=== PATIENT | female | born 1995 | race Asian ===

== ENCOUNTER 2024-08-19 13:40 | Emergency (ER) | payer SELFPAY ==
[2024-08-19] VITALS (25 sets, daily range): BP systolic 96–121; BP diastolic 54–78; PULSE 68–105; RESP 12–31; TEMP 36.8; O2SAT 97–100; BMI 16.6
[2024-08-19 14:08] LABS: Add Manual Diff / Slide Review NO; Basophils Absolute Auto 100 /uL (0-100); Basophils Percent Auto 0.6 % (0-2); Eosinophils Absolute Auto 0 /uL (0-450); Eosinophils Percent Auto 0.1 % (2-4); Hematocrit 33.3 % (36-46); Hemoglobin 10.7 g/dL (12.0-16.0); Lymphocytes Absolute Auto 1100 /uL (1100-4500); Lymphocytes Percent Auto 10.6 % (25-40); Mean Corpuscular Hemoglobin 24.6 PG (26-34); Mean Corpuscular Volume 76.8 fL (80-100); Monocytes Absolute Auto 600 /uL (0-900); Monocytes Percent Auto 5.4 % (3-14); Neutrophils Absolute Auto 8900 /uL (1500-7000); Neutrophils Percent Auto 83.3 % (50-75); Platelet Count 460 X10^3/uL (150-400); Red Blood Cell Count 4.33 X10^6/uL (4.0-5.2); Red Cell Distribution Width 14.1 % (11.6-14.8); White Blood Cell Count 10.7 X10^3/uL (4.5-11.0)
[2024-08-19 14:13] LABS: Alanine Aminotransferase 13 IU/L (<35); Albumin 4.5 g/dL (3.5-5.0); Albumin Globulin Ratio 1.2 (1.0-2.8); Alkaline Phosphatase 86 U/L (38-126); Aspartate Aminotransferase 33 IU/L (14-36); BUN Creatinine Ratio 15.4 (6-22); Bilirubin Total 0.6 mg/dL (0.2-1.3); Blood Urea Nitrogen 16 mg/dL (7-17); Calcium 10.3 mg/dL (8.4-10.2); Carbon Dioxide 27 mmol/L (22-32); Chloride 95 mmol/L (98-107); Estimated Glomerular Filt Rate > 60 mL/min (>60); Globulin 3.9 g/dL (1.7-4.1); Glucose 85 mg/dL (70-100); HEMOLYSIS < 15 (0-50); Lipase 91 U/L (23-300); Potassium 4.2 mmol/L (3.4-5.1); Sodium 135 mmol/L (137-145); Total Protein 8.4 g/dL (6.3-8.2)
--- NOTE | 2024-08-19 14:57 | EKG_ITS ---
[place] [id number] [place] [id number] Test Date: 2024-08-19 Pat Name: Vijay Kemp Department: [facility] Room: Gender: Female Cna Gna: BRANDY : 1995 Requested By: Order Number: [id number] Reading MD: Juan Dickey MD Measurements Intervals [place] Rate: 95 P: 4 IN: 92 QRS: 82 QRSD: 82 T: -54 QT: 344 QTc: 432 Interpretive Statements Sinus rhythm with short IN T wave abnormality, consider inferior ischemia NO PRIOR TRACING Electronically Signed On 08-20-2024 6:49:16 PST by Juan Dickey MD
[2024-08-19] MEDS: ONDANSETRON 4 MG/2 ML INJ IV (14:59)
--- NOTE | 2024-08-19 15:11 | PC.NURSE ---
This RN checks on patient. She denies chest pain and denies SOB. Registered Nurse Surgical Services used. Provider Marc made aware.
--- NOTE | 2024-08-19 15:21 | ED_ITS ---
HPI - Abdominal Pain <Cleo Tran DO - Last Filed: 08/22/24 08:18> General Chief Complaint: Abdominal Pain Stated Complaint: vomiting, nausea, r abd pain, sent by [facility] Time Seen by Provider: 08/19/24 15:20 Source: patient and family (mother in law at bedside) Mode of arrival: Wheelchair Limitations: language barrier (used warehouse representative service) History of Present Illness HPI narrative: 28-year-old female with history of complete hysterectomy presents with complaint of nausea and vomiting for the past 5 days. Patient and feel nauseated before she would eat have a lot of saliva but after eating within throw up she has also been having abdominal pain which describes in the right lower quadrant. Denies any flank pain. Denies any fevers chills or sweats. No chest pain no shortness of breath. Was having bowel movements accept for the last day, she had a bowel movement yesterday states it was very constipated. No bright red blood no melanotic stools. States it her in her belly when she had bowel movement but not at the rectal area. Denies any dysuria urgency or frequency. No vaginal bleeding or discharge. She was not currently on any prescription medication. Did try some Tylenol for pain which was helpful. Has a history of 3 years ago had a hysterectomy and bilateral oophorectomy in March of 2024 who reports that she had a large cyst that was infected and resulted in her surgery. She was on estrogen postsurgically but [place] the [place] has not continued it. Postsurgically she took meloxicam and vitamins. Patient states no allergies to medications. No tobacco, alcohol or recreational drugs. She was currently living in [place]. She was accompanied by her [id number]. Patient states currently 4 or 5/10 when abdomen is palpated was 7/10 earlier today she states it is fairly well controlled when she was resting without any movement. Related Data Home Medications Medication Instructions Recorded Confirmed No Known Home Medications 08/19/24 08/19/24 Allergies Allergy/AdvReac Type Severity Reaction Status Date / Time No Known Drug Allergies Allergy Unverified 08/19/24 12:58 Review of Systems <DO Jesse Alejandro Last Filed: 08/22/24 08:18> Review of Systems ROS Unobtainable: All systems reviewed & are unremarkable except as noted in HPI and below Patient History <Cleo Tran DO - Last Filed: 08/22/24 08:18> Social History Smoking Status: Never smoker Smoking Status: Never smoker Substance Use Type: does not use Exam <Cleo Tran DO - Last Filed: 08/22/24 08:18> Narrative Exam Narrative: GENERAL: Alert and oriented x three, then female in mild distress. HEENT: Head normocephalic, atraumatic, EOMI, pupils reactive, face symmetric, moist mucous membranes NECK: Supple, full range of motion CARDIOVASCULAR: Regular rate and rhythm without murmurs, rubs or gallops. RESPIRATORY: Breath sounds equal bilaterally, no wheezes rales or rhonchi. ABDOMEN: Soft, mild left lower quadrant tenderness patient is definitely tender in the right lower quadrant. Normoactive bowel sounds all 4 quadrants. No guarding or rebound, rigidity, no mass, patient has horizontal incision just above the suprapubic region clean dry and intact appears well healed nontender over that region. : No CVA tenderness bilaterally. EXTREMITIES: Normal range of motion, no clubbing or edema. Neurovascularly intact NEUROLOGICAL: Cranial nerves II through XII grossly intact. Moving all extremities SKIN: Warm, dry, no petechiae, no rashes or lesions. Initial Vital Signs Initial Vital Signs: Vital Signs Pulse Rate 98 H 08/19/24 13:50 Blood Pressure 121/74 08/19/24 13:50 Pulse Oximetry 100 08/19/24 13:50 <Cleo Jimenez MD - Last Filed: 08/20/24 05:34> Initial Vital Signs Initial Vital Signs: Vital Signs Pulse Rate 98 H 08/19/24 13:50 Blood Pressure 121/74 08/19/24 13:50 Pulse Oximetry 100 08/19/24 13:50 Course <Cleo Tran DO - Last Filed: 08/22/24 08:18> Orders Ordered: Discontinued Medications Diphenhydramine HCl (Diphenhydramine 50 Mg/Ml Vial) 25 mg IV NOW ONE Stop: 08/19/24 16:44 Last Admin: 08/19/24 17:08 Dose: 25 mg Documented By: SB Sodium Chloride (Normal Saline 0.9%) 1,000 mls @ 1,000 mls/hr IV BOLUS ONE Stop: 08/19/24 17:42 Last Infusion: 08/19/24 18:02 Dose: Infused Documented By: Admin: 08/19/24 17:07 Dose: 1,000 mls/hr Documented By: SALVADOR Ketorolac Tromethamine (Ketorolac 30 Mg/Ml Vial) 15 mg IV NOW ONE Stop: 08/19/24 16:43 Last Admin: 08/19/24 17:09 Dose: 15 mg Documented By: SALVADOR Ondansetron HCl (Ondansetron 4 Mg/2 Ml Inj) 4 mg IV NOW PRN PRN Reason: Nausea And Vomiting Last Admin: 08/20/24 05:15 Dose: 4 mg Documented By: Admin: 08/19/24 14:59 Dose: 4 mg Documented By: SALVADOR Ondansetron HCl (Ondansetron 4 Mg Odt) 4 mg PO NOW PRN PRN Reason: Nausea And Vomiting Vital Signs Vital signs: Vital Signs - 8 hr 08/19/24 22:00 08/19/24 22:00 08/19/24 22:30 Pulse Rate 76 68 Respiratory Rate 20 19 Blood Pressure 102/59 L Pulse Oximetry 99 99 Oxygen Delivery Method Room Air 08/19/24 22:30 08/19/24 23:00 08/19/24 23:00 Pulse Rate 79 Respiratory Rate Blood Pressure 108/60 96/54 L Pulse Oximetry 98 Oxygen Delivery Method 08/19/24 23:30 08/19/24 23:30 08/20/24 00:00 Pulse Rate 76 Respiratory Rate Blood Pressure 97/57 L 99/60 Pulse Oximetry 98 Oxygen Delivery Method Room Air 08/20/24 00:00 08/20/24 00:30 08/20/24 00:59 Pulse Rate 81 83 81 Respiratory Rate Blood Pressure Pulse Oximetry 98 100 99 Oxygen Delivery Method 08/20/24 00:59 08/20/24 01:00 08/20/24 01:00 Pulse Rate 81 Respiratory Rate 18 Blood Pressure 93/75 106/58 L Pulse Oximetry 99 Oxygen Delivery Method Room Air <Cleo Jimenez MD - Last Filed: 08/20/24 05:34> Orders Ordered: Discontinued Medications Diphenhydramine HCl (Diphenhydramine 50 Mg/Ml Vial) 25 mg IV NOW ONE Stop: 08/19/24 16:44 Last Admin: 08/19/24 17:08 Dose: 25 mg Documented By: SALVADOR Sodium Chloride (Normal Saline 0.9%) 1,000 mls @ 1,000 mls/hr IV BOLUS ONE Stop: 08/19/24 17:42 Last Infusion: 08/19/24 18:02 Dose: Infused Documented By: Admin: 08/19/24 17:07 Dose: 1,000 mls/hr Documented By: SALVADOR Ketorolac Tromethamine (Ketorolac 30 Mg/Ml Vial) 15 mg IV NOW ONE Stop: 08/19/24 16:43 Last Admin: 08/19/24 17:09 Dose: 15 mg Documented By: SALVADOR Ondansetron HCl (Ondansetron 4 Mg/2 Ml Inj) 4 mg IV NOW PRN PRN Reason: Nausea And Vomiting Last Admin: 08/20/24 05:15 Dose: 4 mg Documented By: Admin: 08/19/24 14:59 Dose: 4 mg Documented By: SALVADOR Ondansetron HCl (Ondansetron 4 Mg Odt) 4 mg PO NOW PRN PRN Reason: Nausea And Vomiting Vital Signs Vital signs: Vital Signs - 8 hr 08/19/24 22:00 08/19/24 22:00 08/19/24 22:30 Pulse Rate 76 68 Respiratory Rate 20 19 Blood Pressure 102/59 L Pulse Oximetry 99 99 Oxygen Delivery Method Room Air 08/19/24 22:30 08/19/24 23:00 08/19/24 23:00 Pulse Rate 79 Respiratory Rate Blood Pressure 108/60 96/54 L Pulse Oximetry 98 Oxygen Delivery Method 08/19/24 23:30 08/19/24 23:30 08/20/24 00:00 Pulse Rate 76 Respiratory Rate Blood Pressure 97/57 L 99/60 Pulse Oximetry 98 Oxygen Delivery Method Room Air 08/20/24 00:00 08/20/24 00:30 08/20/24 00:59 Pulse Rate 81 83 81 Respiratory Rate Blood Pressure Pulse Oximetry 98 100 99 Oxygen Delivery Method 08/20/24 00:59 08/20/24 01:00 08/20/24 01:00 Pulse Rate 81 Respiratory Rate 18 Blood Pressure 93/75 106/58 L Pulse Oximetry 99 Oxygen Delivery Method Room Air MDM - Abdominal Pain <Cleo Tran, DO - Last Filed: 08/22/24 08:18> Lab Data 08/19/24 13:50 08/19/24 13:50 Labs: Lab Results 08/19/24 08/19/24 Range/Units 13:50 15:00 WBC 10.7 (4.5-11.0) X10^3/uL RBC 4.33 (4.0-5.2) X10^6/uL Hgb 10.7 L (12.0-16.0) g/dL Hct 33.3 L (36-46) % MCV 76.8 L (80-100) fL MCH 24.6 L (26-34) PG MCHC 32.0 (30-36) % RDW 14.1 (11.6-14.8) % Plt Count 460 H (150-400) X10^3/uL Neut % (Auto) 83.3 H (50-75) % Lymph % (Auto) 10.6 L (25-40) % [place] % (Auto) 5.4 (3-14) % Eos % (Auto) 0.1 L (2-4) % Baso % (Auto) 0.6 (0-2) % Neut # (Auto) 8900 H (5686-4581) /uL Lymph # (Auto) 1100 (0998-4323) /uL [place] # (Auto) 600 (0-900) /uL Eos # (Auto) 0 (0-450) /uL Baso # (Auto) 100 (0-100) /uL Sodium 135 L (137-145) mmol/L Potassium 4.2 (3.4-5.1) mmol/L Chloride 95 L (98-107) mmol/L Carbon Dioxide 27 (22-32) mmol/L BUN 16 (7-17) mg/dL Creatinine 1.04 (0.52-1.04) mg/dL Estimated GFR > 60 (>60) mL/min BUN/Creatinine Ratio 15.4 (6-22) Glucose 85 (70-100) mg/dL Calcium 10.3 H (8.4-10.2) mg/dL Total Bilirubin 0.6 (0.2-1.3) mg/dL AST 33 (14-36) IU/L ALT 13 (<35) IU/L Alkaline Phosphatase 86 (38-126) U/L Troponin I < 0.012 (0.01-0.034) ng/mL Total Protein 8.4 H (6.3-8.2) g/dL Albumin 4.5 (3.5-5.0) g/dL Globulin 3.9 (1.7-4.1) g/dL Albumin/Globulin Ratio 1.2 (1.0-2.8) Lipase 91 (23-300) U/L Carcinoembryonic Ag 0.7 (0.1-3.0) ng/mL CA 125 Antigen 356 H (0-35) U/mL Urine RBC None seen (0-5/HPF) Urine WBC 1-5/hpf (0-5/HPF) Ur Squamous Epith Cells 1-5 /hpf (0-5/HPF) Urine Bacteria None seen (None) Ur Culture Indicated? Cult not indicated Vol Urine Centrifuged 10ml (spun) Point of care testing: Point of Care Testing Test Results Negative Urine Dip Bedside Urine Glucose Negative Bedside Urine Bilirubin - Negative Bedside Urine Ketone +++ 80 Urine Specific [place] 1.030 Bedside Urine Occult Blood +/- Bedside Urine pH 6.0 Bedside Urine Protein +/- 15 Bedside Urine Urobilinogen - Negative Bedside Urine Nitrite - Negative Bedside Urine Leukocytes +/- [address] scan - abdomen/pelvis: Radiologist's Impression: Vijay Kemp??28??F??1995 ? Allergy/Adv: No Known Drug Allergies Close Abdomen/Pelvis CT (Signed) [facility] - 08/19/24 Launch?[place] [address] CT Scan Report Signed Patient: Vijay Kemp MR#: [id number] : 1995 Acct:[id number] Age/Sex: 28 / F Date of Service: 08/19/24 Loc: ED Accession Number: [id number] Procedure: CT abdomen pelvis w con Ordering Provider: Cleo Tran D.O. PROCEDURE: CT ABDOMEN PELVIS W CON INDICATIONS: RLQ abd pain x 5 days, n/v w/ food, constipated x 1 day TECHNIQUE: After the administration of intravenous contrast, axial sections acquired from the lung bases to the pubic symphysis. Coronal and sagittal reformats were performed. For radiation dose reduction, the following was used: automated exposure control, adjustment of mA and/or kV according to patient size. COMPARISON: None. FINDINGS: Image quality: Diagnostic Lower chest: Unremarkable lung bases Normal heart size Liver: Unremarkable Gallbladder and biliary system: Unremarkable, nondilated Pancreas: No ductal dilation Spleen: Splenomegaly at 15 cm craniocaudal dimension Adrenals: No adrenal nodules Kidneys: No solid renal mass. There is severe hydronephrosis and ureter dilation of the left kidney with cortical thinning suggestive of chronic etiology. The ureter is obstructed distally by the pelvic masses. Vessels and lymph nodes: The main portal vein is patent. Infiltrative upper retroperitoneal soft tissue likely malignant deposits, for example measuring 1.1 cm in short axis adjacent to the SMA. No abdominal aortic aneurysm Bowel and peritoneum: No evidence of acute small bowel obstruction. Mild fecal loading. Nondistended stomach. There is extensive peritoneal carcinomatosis, with necrotic masses throughout the pelvis and right and left paracolic gutters. Index lesion of the right paracolic gutter measures 9 x 7 cm on axial image 2/83. Second proposed index lesion in the pelvic cul-de-sac measures 7 x 7 cm on image 2/125. Small surrounding ascites presumed malignant. The appendix is prominent measuring 7 mm, but it with internal gas which is suggestive of patency. Body wall: Unremarkable Pelvis: Bladder is unremarkable. The uterus is absent. Reported history of oophorectomy. Bones: No aggressive appearing osseous lesions. IMPRESSION: Extensive peritoneal carcinomatosis with dominant masses in the right and left paracolic gutters and pelvis. The pelvis lesions obstruct the left distal ureter with severe upstream hydronephrosis and obstructive nephropathy. Renal cortical thinning is suggestive of chronic nature. Discussed with Dr. Tran. 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 Completion staging with chest CT or PET-CT is suggested. If pathologic analysis is desired, the peritoneal lesions are amenable to CT or ultrasound-guided percutaneous sampling. The appendix is prominent at 7 mm, but with internal gas which suggests patency. No small bowel obstruction. Fecal loading is mild. The stomach is nondistended. Dictated by: Gaetano Madison M.D. on 08/19/2024 at 17:01 Approved by: Gaetano Madison M.D. on 08/19/2024 at 17:12 ECG Data Attestation: I personally reviewed and interpreted this ECG as follows: Interpretation: Sinus rhythm rate of 95, MA 92 QRS 82 QTC of 432 inverted T-waves 2 3 and AVF as well as lead V3. No elevation appreciated. MDM Narrative Medical decision making narrative: 28-year-old female history of a hysterectomy in March of 2024 for sounds like possible tubo-ovarian abscess patient describes having a large cyst that was infected and having her uterus and ovaries removed. Patient states about 5 days short having some nausea vomiting particularly after food and he is increased pain in the right lower quadrant she was tender on exam particularly in the right lower quadrant she was very mildly tender in the left side patient does not have any flank pain. Patient is slightly tachycardic, afebrile here in the department. Labs show white count of 10.7 hemoglobin of 10.7 microcytic. Platelets are 460 with a predominance of neutrophils. Electrolytes show sodium 135 potassium 4.2 chloride 95, CO2 is 27 with a BUN 16. INR 1.04 with a calcium of 10.3 glucose 85- LFTs troponin was less than 0.012 has been obtained as patient had some EKG changes but does not have chest pain or shortness of breath. Lipase normal at 91. Positive for ketones, negative for nitrates positive for leukocyte esterase. No RBCs 1-5 white cells 1-5 squamous no bacteria. EKG shows soreness rhythm, short MA, T-waves inverted [address] chest abdomen pelvis signs of peritoneal carcinomatosis with dominant masses right and left pericolic gutters and pelvis pelvic lesions obstructing left distal ureter with severe upstream hydro as directed nephropathy, renal cortical thinning and suggestive of chronic nature. Given the patient's surgical history findings compatible with a 74 gynecologic malignancy. Complete staging with chest CT or PET-CT adjusted. Pathologic analysis desire peritoneal lesions amenable to CT or ultrasound-guided percutaneous sampling appendix is prominent 7 mm with internal gas which excess patency. No small-bowel obstruction. Fecal loading his mild. The stomach is distended. Dr. Madison called results to myself. He states patient could be biopsied here by Radiology. 0: Dr. Gross, electric meter installer reviewed would add on CA 125, would refer patient to returned goods sorter/oncology suspected gynecological source. 1825: Dr. Lua, urology: States would put a stent in but not necessarily emergently with normal renal function. 1830: Oncology, Dr. Crow: Discussed findings from today so far would ask that we add a CEA on top of the 125. Based on patient's past medical history, living in the [facility] which is going to be a barrier to care and language barriers would recommend transfer to [facility] or some place larger to initiate workup. Using warehouse representative line. Spoke with patient and mother in law at bedside. Reviewed findings. Discussed significant concerns for cancer. After discussion [id number] states she did have contact with the surgeon who performed patient's hysterectomy and that there was discussion of cancer at that time. Patient was in [place] of [place] She is going to try to reach out as she has their phone contact to see if she can have a more formal diagnosis or if there was any pathology. Discussed findings including obstructive nephropathy suspicion for some partial bowel obstruction although no changes to this on imaging. Discussed would like to try to transfer to help facilitate workup. They are agreeable. Patient is tearful but no additional questions at this time. <Cleo Jimenez MD - Last Filed: 08/20/24 05:34> Lab Data Labs: Lab Results 08/19/24 08/19/24 Range/Units 13:50 15:00 WBC 10.7 (4.5-11.0) X10^3/uL RBC 4.33 (4.0-5.2) X10^6/uL Hgb 10.7 L (12.0-16.0) g/dL Hct 33.3 L (36-46) % MCV 76.8 L (80-100) fL MCH 24.6 L (26-34) PG MCHC 32.0 (30-36) % RDW 14.1 (11.6-14.8) % Plt Count 460 H (150-400) X10^3/uL Neut % (Auto) 83.3 H (50-75) % Lymph % (Auto) 10.6 L (25-40) % [place] % (Auto) 5.4 (3-14) % Eos % (Auto) 0.1 L (2-4) % Baso % (Auto) 0.6 (0-2) % Neut # (Auto) 8900 H (0861-4382) /uL Lymph # (Auto) 1100 (5862-2202) /uL [place] # (Auto) 600 (0-900) /uL Eos # (Auto) 0 (0-450) /uL Baso # (Auto) 100 (0-100) /uL Sodium 135 L (137-145) mmol/L Potassium 4.2 (3.4-5.1) mmol/L Chloride 95 L (98-107) mmol/L Carbon Dioxide 27 (22-32) mmol/L BUN 16 (7-17) mg/dL Creatinine 1.04 (0.52-1.04) mg/dL Estimated GFR > 60 (>60) mL/min BUN/Creatinine Ratio 15.4 (6-22) Glucose 85 (70-100) mg/dL Calcium 10.3 H (8.4-10.2) mg/dL Total Bilirubin 0.6 (0.2-1.3) mg/dL AST 33 (14-36) IU/L ALT 13 (<35) IU/L Alkaline Phosphatase 86 (38-126) U/L Troponin I < 0.012 (0.01-0.034) ng/mL Total Protein 8.4 H (6.3-8.2) g/dL Albumin 4.5 (3.5-5.0) g/dL Globulin 3.9 (1.7-4.1) g/dL Albumin/Globulin Ratio 1.2 (1.0-2.8) Lipase 91 (23-300) U/L Carcinoembryonic Ag 0.7 (0.1-3.0) ng/mL CA 125 Antigen 356 H (0-35) U/mL Urine RBC None seen (0-5/HPF) Urine WBC 1-5/hpf (0-5/HPF) Ur Squamous Epith Cells 1-5 /hpf (0-5/HPF) Urine Bacteria None seen (None) Ur Culture Indicated? Cult not indicated Vol Urine Centrifuged 10ml (spun) Point of care testing: Point of Care Testing Test Results Negative Urine Dip Bedside Urine Glucose Negative Bedside Urine Bilirubin - Negative Bedside Urine Ketone +++ 80 Urine Specific [place] 1.030 Bedside Urine Occult Blood +/- Bedside Urine pH 6.0 Bedside Urine Protein +/- 15 Bedside Urine Urobilinogen - Negative Bedside Urine Nitrite - Negative Bedside Urine Leukocytes +/- 15 Esterase MDM Narrative Medical decision making narrative: 28-year-old female history of a hysterectomy in March of 2024 for sounds like possible tubo-ovarian abscess patient describes having a large cyst that was infected and having her uterus and ovaries removed. Patient states about 5 days short having some nausea vomiting particularly after food and he is increased pain in the right lower quadrant she was tender on exam particularly in the right lower quadrant she was very mildly tender in the left side patient does not have any flank pain. Patient is slightly tachycardic, afebrile here in the department. Labs show white count of 10.7 hemoglobin of 10.7 microcytic. Platelets are 460 with a predominance of neutrophils. Electrolytes show sodium 135 potassium 4.2 chloride 95, CO2 is 27 with a BUN 16. INR 1.04 with a calcium of 10.3 glucose 85- LFTs troponin was less than 0.012 has been obtained as patient had some EKG changes but does not have chest pain or shortness of breath. Lipase normal at 91. Positive for ketones, negative for nitrates positive for leukocyte esterase. No RBCs 1-5 white cells 1-5 squamous no bacteria. EKG shows soreness rhythm, short MA, T-waves inverted [address] chest abdomen pelvis signs of peritoneal carcinomatosis with dominant masses right and left pericolic gutters and pelvis pelvic lesions obstructing left distal ureter with severe upstream hydro as directed nephropathy, renal cortical thinning and suggestive of chronic nature. Given the patient's surgical history findings compatible with a 74 gynecologic malignancy. Complete staging with chest CT or PET-CT adjusted. Pathologic analysis desire peritoneal lesions amenable to CT or ultrasound-guided percutaneous sampling appendix is prominent 7 mm with internal gas which excess patency. No small-bowel obstruction. Fecal loading his mild. The stomach is distended. Dr. Madison called results to myself. He states patient could be biopsied here by Radiology. 1730: Dr. Gross, electric meter installer reviewed would add on CA 125, would refer patient to returned goods sorter/oncology suspected gynecological source. 1826: Dr. Lua, urology: States would put a stent in but not necessarily emergently with normal renal function. 1830: Oncology, Dr. Crow: Discussed findings from today so far would ask that we add a CEA on top of the 125. Based on patient's past medical history, living in the [facility] which is going to be a barrier to care and language barriers would recommend transfer to [facility] or some place larger to initiate workup. Using warehouse representative line. Spoke with patient and mother in law at bedside. Reviewed findings. Discussed significant concerns for cancer. After discussion [id number] states she did have contact with the surgeon who performed patient's hysterectomy and that there was discussion of cancer at that time. Patient was in [place] She is going to try to reach out as she has their phone contact to see if she can have a more formal diagnosis or if there was any pathology. Discussed findings including obstructive nephropathy suspicion for some partial bowel obstruction although no changes to this on imaging. Discussed would like to try to transfer to help facilitate workup. They are agreeable. Patient is tearful but no additional questions at this time. Dr. Jimenez - 2120 - Dr. Carlos at [facility] who accepts patient. No beds currently. 0500 - patient transported to [facility] in stable condition Discharge Plan Departure Patient Disposition: [facility] Clinical Impression: Peritoneal carcinomatosis Prescriptions: No Action No Known Home Medications Referrals: Miscellaneous,DoctorMD [Primary Care Provider] -
[2024-08-19 15:37] LABS: Troponin I < 0.012 ng/mL (0.01-0.034)
[2024-08-19 15:44] LABS: Bacteria Urine None Seen; Culture Indicated Urine Cult Not Indicated; RBC Urine None Seen (0-5/HPF); Squamous Epithelial Cell Urine 1-5 /HPF (0-5/HPF); Urine Volume 10mL (spun); WBC Urine 1-5/HPF (0-5/HPF)
--- NOTE | 2024-08-19 16:21 | CM.SWNOTE ---
ED MACHINE CRATER Note Patient is 28 y/o female who presents to ED with mother in law due to concern for N/V and abdominal pain. Patient just immigrated from [place], just got her green card and SS number and does not have insurance at this time. MACHINE CRATER utlizes [employer]fdc solution architect line and enters room to meet with patient. Present in room is patient's MIL. It is reported that patient is in need of insurance. MACHINE CRATER provides patient and mother in law with information on how to enroll patient with state insurance in person, via phone and online. MACHINE CRATER endorses that via phone there is a language line. Patient's MIL states that she will assist in enrolling patient with insurance. MACHINE CRATER reviews the kyree packet with patient and MIL and states that they can fill that out but if they set up insurance for patient to let [facility] know. MACHINE CRATER informs them that state insurance will back date to the beginning of the month when they enroll. Patient and MIL deny and other concerns or needs to this MACHINE CRATER. Plan: ED provider to assess patient with sfdc solution architect line, patient to d/c to home upon medical clearance. Merari Long, BILL ADJUSTER
--- NOTE | 2024-08-19 16:42 | DI.CT.S_ITS ---
PROCEDURE: CT ABDOMEN PELVIS W CON INDICATIONS: RLQ abd pain x 5 days, n/v w/ food, constipated x 1 day TECHNIQUE: After the administration of intravenous contrast, axial sections acquired from the lung bases to the pubic symphysis. Coronal and sagittal reformats were performed. For radiation dose reduction, the following was used: automated exposure control, adjustment of mA and/or kV according to patient size. COMPARISON: None. FINDINGS: Image quality: Diagnostic Lower chest: Unremarkable lung bases Normal heart size Liver: Unremarkable Gallbladder and biliary system: Unremarkable, nondilated Pancreas: No ductal dilation Spleen: Splenomegaly at 15 cm craniocaudal dimension Adrenals: No adrenal nodules Kidneys: No solid renal mass. There is severe hydronephrosis and ureter dilation of the left kidney with cortical thinning suggestive of chronic etiology. The ureter is obstructed distally by the pelvic masses. Vessels and lymph nodes: The main portal vein is patent. Infiltrative upper retroperitoneal soft tissue likely malignant deposits, for example measuring 1.1 cm in short axis adjacent to the SMA. No abdominal aortic aneurysm Bowel and peritoneum: No evidence of acute small bowel obstruction. Mild fecal loading. Nondistended stomach. There is extensive peritoneal carcinomatosis, with necrotic masses throughout the pelvis and right and left paracolic gutters. Index lesion of the right paracolic gutter measures 9 x 7 cm on axial image 2/83. Second proposed index lesion in the pelvic cul-de-sac measures 7 x 7 cm on image 2/125. Small surrounding ascites presumed malignant. The appendix is prominent measuring 7 mm, but it with internal gas which is suggestive of patency. Body wall: Unremarkable Pelvis: Bladder is unremarkable. The uterus is absent. Reported history of oophorectomy. Bones: No aggressive appearing osseous lesions. IMPRESSION: Extensive peritoneal carcinomatosis with dominant masses in the right and left paracolic gutters and pelvis. The pelvis lesions obstruct the left distal ureter with severe upstream hydronephrosis and obstructive nephropathy. Renal cortical thinning is suggestive of chronic nature. Discussed with Dr. Tran. 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 Completion staging with chest CT or PET-CT is suggested. If pathologic analysis is desired, the peritoneal lesions are amenable to CT or ultrasound-guided percutaneous sampling. The appendix is prominent at 7 mm, but with internal gas which suggests patency. No small bowel obstruction. Fecal loading is mild. The stomach is nondistended. Dictated by: Gaetano Madison M.D. on 08/19/2024 at 17:01 Approved by: Gaetano Madison M.D. on 08/19/2024 at 17:12
[2024-08-19] MEDS: SODIUM CHLORIDE 0.9% 1,000 ML 1000 ML IV (17:07)
[2024-08-19] MEDS: diphenhydrAMINE 50 MG/ML VIAL 25 MG IV (17:08)
[2024-08-19] MEDS: KETOROLAC 30 MG/ML VIAL 15 MG IV (17:09)
--- NOTE | 2024-08-19 17:31 | PC.NURSE ---
requested to consult with at 1729, was reached on the first try at 1731 and was transferred to .
[2024-08-19 18:37] LABS: Cancer Antigen 125 356 U/mL (0-35)
[2024-08-19 19:21] LABS: Carcinoembryonic Antigen 0.7 ng/mL (0.1-3.0)
--- NOTE | 2024-08-19 19:21 | PC.NURSE ---
Mother in law, Keely, left contact numbers: 1) [phone] 2) [phone]
[2024-08-20] VITALS (12 sets, daily range): BP systolic 93–107; BP diastolic 56–75; PULSE 68–95; RESP 17–23; TEMP 36.8; O2SAT 98–100
[2024-08-20] MEDS: ONDANSETRON 4 MG/2 ML INJ IV (05:15)
--- NOTE | 2024-08-20 05:34 | PC.NURSE ---
0405 - Pt informed via [place] aerial photograph interpreter Poonam #[id number] of transfer to [facility]. Consent received, questions answered. Pt phoned Keely, [id number], and updated her.
== END 2024-08-20 05:24 | disposition short-term general hospital (02) ==
PROVIDERS: Emergency Provider Emergency Medicine
DX: C78.6 Secondary malignant neoplasm of retroperitoneum and peritoneum (principal); R10.31 Right lower quadrant pain
CPT/HCPCS: 36415; 74177; 80053; 81003; 81015; 81025; 82378; 83690; 84484; 85025; 86304; 93005; 93010; 96361; 96374; 96375; 96376; 99284; J1200; J1885; J2405; Q9967